=== PATIENT | male | born 1980 | race Caucasian/White ===

== ENCOUNTER → 2021-04-13 | Outpatient (CLI) | payer OTHER ==
[~2021-04-13] MED LIST: ALDACTONE 25MG25 MG PO; ASPIRIN EC81 MG PO; ATORVASTATIN CA20 MG PO; CARVEDILOL25 MG PO; COREG 25MG TAB25 MG PO; DOXYCYCLINE HY100 M2 PO; ENTRESTO 24 MG1 EACH PO; FUROSEMIDE40 MG PO; GLUCOPHAGE 500500 MG PO; JANUVIA50 MG PO; LASIX20 MG PO; LIPITOR TAB 2020 MG PO; LISINOPRIL5 MG PO; PREDNISONE20 MG PO; PROVENTIL HFA6.7 GM INH; ROBITUSSIN AC480 ML PO; VIBRAMYCIN100 MG PO
== END ==
LOC: SLEEP 14:06
DX: G47.33 Obstructive sleep apnea (adult) (pediatric) (principal); Z00.00 Encounter for general adult medical examination without abnormal findings; J30.9 Allergic rhinitis, unspecified; I42.0 Dilated cardiomyopathy; N62 Hypertrophy of breast; I10 Essential (primary) hypertension; Z86.79 Personal history of other diseases of the circulatory system
CPT/HCPCS: 95810